=== PATIENT | male | born 1950 | race Caucasian/White ===

== ENCOUNTER 2019-03-02 11:11 | Inpatient (IN) | payer MEDICARE, OTHER ==
[~2019-03-02] VITALS: Ht 185.4 cm; Wt 110.0 kg
[2019-03-02] VITALS (8 sets, daily range): BP systolic 101–122; BP diastolic 48–75; PULSE 57–81; TEMP 97.9
[~2019-03-02 11:11] MED LIST: ADVIL200 MG PO; FLEXERIL 1010 MG/TAB PO; IMODIUM 2MG CAPS2 MG PO; LIDODERM 5% PATC1 EA TP; MOBIC15 MG PO; PROTONIX 40MG T40 MG PO; STOMACH RELIEF262 MG PO; ULTRAM 50MG TAB50 MG PO; VIVLODEX5 MG; [UNRECOGNIZED DRUG - OTHER] PO
[2019-03-02] MEDS ORDERED: MOBIC15 MG PO (11:30)
[2019-03-02 12:35] LABS: BASO % 0.3 % (0.0-2.0); EOS # 0.2 (0.0-0.7); EOS % 2.1 % (0-4.0); GRAN # 6.3 (1.4-6.5); GRAN % 82.7 % (42.2-75.2); HEMATOCRIT 41.5 % (42.0-52.0); LYMPH # 0.7 (1.2-3.4); LYMPH % 9.2 % (20.0-51.0); MEAN CELL VOLUME 92 fl (80.0-100.0); MEAN CORPUSCULAR HEMOGLOBIN 31 pg (27.0-31.0); MEAN CORPUSCULAR HGB CONC 34 g/dl (33.0-37.0); MEAN PLATELET VOLUME 9.1 fl (7.4-10.4); MONO # 0.4 (0.1-0.6); MONO % 4.9 % (1.7-9.3); PLATELET COUNT 179 K/mm3 (130-400); REDCELL DISTRIBUTION WIDTH-CV 12.9 % (11.5-14.5)
[2019-03-02 12:43] LABS: ALBUMIN 4.4 gm/dL (3.5-5.0); BILIRUBIN,TOTAL 0.6 mg/dL (0.0-1.0); CALCIUM 8.5 mg/dL (8.4-10.2); CREATININE, serum 0.97 (0.66-1.25); POTASSIUM 4.5 mmol/L (3.4-5.0); TOTAL PROTEIN 7.9 gm/dL (6.4-8.2)
[2019-03-02] MEDS ORDERED: TYLENOL 500MG500 MG PO (14:06)
[2019-03-02 14:56] LABS: INR 1.1 (0.8-3.0); PROTHROMBIN TIME 13.2 SECONDS (9.7-12.8)
[2019-03-02 15:13] LABS: COLLECTION METHOD CATHETER
[2019-03-02 15:20] LABS: MUCOUS Present /lpf; PH 7 (5-8); SQUAMOUS EPITHELIAL None Seen /hpf; URINE APPEARANCE Clear; URINE BACTERIA None Seen /hpf; URINE BILIRUBIN Negative (NEGATIVE); URINE BLOOD Negative (NEGATIVE); URINE COLOR Yellow; URINE GLUCOSE Negative (NEGATIVE); URINE KETONE Negative (NEGATIVE); URINE LEUKOCYTE ESTERASE Negative (NEGATIVE); URINE NITRATE Negative (NEGATIVE); URINE PROTEIN(semi-quant) Negative (NEGATIVE); URINE RBC 0-2 /hpf; URINE UROBILINOGEN Negative (NEGATIVE)
--- NOTE | 2019-03-02 17:15 | NUR ---
Patient to the OR with [facility] nurse. Patient was seen by hospitalist & cleared for surgery. Lozano inserted & UA sent lab. Ekg completed. Inital, 5 page, & med rec completed. Prior to Or patient was in significant pain-morphine did not relieve pain, hospitalist made aware & dilaudid given & patient was able to get relief from the pain. He refused Teds & scds until his hip is fixed. Ivf to gravity. He has been Npo, denied nausea. sip of water with pepcid. Will await his return from Or
--- NOTE | 2019-03-03 01:13 | NUR ---
PATIENT DOING WELL TONIGHT. UP FROM SURGERY. ALERT AND ORIENTED. DENIES PAIN. FEELING RETURNED TO LEGS AND IS ABLE TO MOVE FEET AND FEET LIGHT TOUCH. STATES PAIN FEELS LIKE "BEE STING" AND DENIES NEED FOR PAIN MEDICATION. ATE A FEW SNACKS. BP HAS BEEN LOW, WILL CONTINUE TO MONITOR. BULKY DRESSING TO R HIP. PILLOW BETWEEN LEGS. TEDS, AND SCDS ON. ICE APPLIED TO R HIP INCISION SITE. RAMIREZ DRAINING CLEAR YELLOW URINE. 2 L O2 VIA NC. PATIENT UP WATCHING TV. CALL LIGHT WITHIN REACH. WILL CONTINUE TO MONITOR. NO FURTHER NEEDS AT THIS TIME.
[2019-03-03 03:11] VITALS: BP 101/65; PULSE 66; TEMP 98.7
[2019-03-03 07:47] VITALS: BP 117/63; PULSE 75; TEMP 98.3
--- NOTE | 2019-03-03 10:26 | NUR ---
PT UP TO RECLINER WITH THERAPY. PAIN CONTROLLED WITH PO MEDS.
[2019-03-03 10:38] LABS: HEMOGLOBIN 12.1 g/dl (13.5-18.0)
[2019-03-03 10:44] LABS: HEMATOCRIT 35.8 % (42.0-52.0)
--- NOTE | 2019-03-03 10:51 | NUR ---
ALIYA met with the patient to discuss a discharge plan. The patient lives in [place] with his , Katheryn. The patient has a cane and reports independence with ADLs. The patient's PCP is Dr. Bullock and patient receives medications from [facility]. The patient does not have advanced directives in the EMR. The patient is needing a walker. ALIYA presented the DME choice form. The patient chose [facility] and form placed in the chart. ALIYA faxed the order to [facility]. Physical therapy is recommending outpatient physical therapy. The patient has had PT at [facility] in the past and would like to return there for PT. ALIYA contacted [facility] and they requested orders, facesheet, PT note be faxed at discharge. services tech will continue to follow to ensure a safe discharge.
--- NOTE | 2019-03-03 11:16 | NUR ---
phillips catheter discontinued per orders. pt tolerated well. Educated pateint on calling when he wants to get up.
--- NOTE | 2019-03-03 11:41 | NUR ---
pt up to br voided and returned to recliner.
[2019-03-03 12:18] VITALS: BP 119/55; PULSE 72; TEMP 98.3
--- NOTE | 2019-03-03 15:32 | NUR ---
Hira from [facility] delivered the patient's walker this day. director water and waste services will continue to follow.
[2019-03-03 15:50] VITALS: BP 106/60; PULSE 67; TEMP 98.2
[2019-03-03 21:41] VITALS: BP 118/61; PULSE 69; TEMP 98.7
[2019-03-04] VITALS (7 sets, daily range): BP systolic 98–111; BP diastolic 50–62; PULSE 62–80; TEMP 97.3–98.7
--- NOTE | 2019-03-04 00:34 | NUR ---
PATIENT DOING WELL TONIGHT. BULKY DRESSING TO R HIP CDI. INT TO R FA. AMBULATED TO BATHROOM WITH STANDBY ASSIST AND USE OF WALKER. PRN NORCO GIVEN BEFORE BED FOR MODERATE PAIN. NO FURTHER NEEDS AT THIS TIME. WILL CONTINUE TO MONITOR.
--- NOTE | 2019-03-04 07:02 | NUR ---
Report from Verito MELGOZA.
[2019-03-04 08:07] LABS: BASO % 0.2 % (0.0-2.0); EOS # 0.1 (0.0-0.7); EOS % 0.9 % (0-4.0); GRAN # 4.1 (1.4-6.5); GRAN % 70.7 % (42.2-75.2); HEMOGLOBIN 11.3 g/dl (13.5-18.0); LYMPH # 1.2 (1.2-3.4); LYMPH % 20.5 % (20.0-51.0); MEAN CELL VOLUME 94 fl (80.0-100.0); MEAN CORPUSCULAR HEMOGLOBIN 32 pg (27.0-31.0); MEAN CORPUSCULAR HGB CONC 34 g/dl (33.0-37.0); MEAN PLATELET VOLUME 9.4 fl (7.4-10.4); MONO # 0.4 (0.1-0.6); MONO % 7.4 % (1.7-9.3); PLATELET COUNT 154 K/mm3 (130-400); RED BLOOD COUNT 3.58 M/mm3 (4.20-5.60); REDCELL DISTRIBUTION WIDTH-CV 13.2 % (11.5-14.5)
[2019-03-04 08:16] LABS: HEMATOCRIT 33.5 % (42.0-52.0)
--- NOTE | 2019-03-04 13:28 | NUR ---
dressing change complete, incision cdi, aquacel applied oveer incision. Dr. Castorena ok for pt to be independent in and out of room.
--- NOTE | 2019-03-04 22:47 | NUR ---
PATIENT DOING WELL TONIGHT. IS INDEPENDENT IN HIS ROOM. PATIENT TOOK PRN NORCO AND MELATONIN BEFORE BED. STATES HE HAS TROUBLE SLEEPING BECAUSE HE NORMALLY SLEEPS ON HIS SIDE. REQUESTS HELP GETTING HIS SANDALS OFF, STATES HE FELT LIKE HE TWISTED WRONG AND HAD INCREASED PAIN MOMENTARILY. AMBULATION IS STEADY. AQUACELL TO R HIP IS CDI. NO DRAINAGE NOTED. NO FURTHER NEEDS AT THIS TIME. WILL CONTINUE TO MONITOR.
[2019-03-05 03:50] VITALS: BP 108/56; PULSE 75; TEMP 98
[2019-03-05 08:36] LABS: BASO % 0.3 % (0.0-2.0); EOS # 0.2 (0.0-0.7); EOS % 3.6 % (0-4.0); GRAN # 4.7 (1.4-6.5); GRAN % 70.4 % (42.2-75.2); HEMOGLOBIN 12.4 g/dl (13.5-18.0); LYMPH # 1.2 (1.2-3.4); LYMPH % 18.1 % (20.0-51.0); MEAN CELL VOLUME 93 fl (80.0-100.0); MEAN CORPUSCULAR HEMOGLOBIN 31 pg (27.0-31.0); MEAN CORPUSCULAR HGB CONC 34 g/dl (33.0-37.0); MEAN PLATELET VOLUME 9.6 fl (7.4-10.4); MONO # 0.5 (0.1-0.6); MONO % 6.8 % (1.7-9.3); PLATELET COUNT 169 K/mm3 (130-400); RED BLOOD COUNT 3.97 M/mm3 (4.20-5.60); REDCELL DISTRIBUTION WIDTH-CV 13.3 % (11.5-14.5)
[2019-03-05 08:39] LABS: HEMATOCRIT 36.8 % (42.0-52.0)
[2019-03-05 08:44] VITALS: BP 112/62; PULSE 76; TEMP 97
[2019-03-05 08:50] LABS: CALCIUM 8.8 mg/dL (8.4-10.2); CREATININE, serum 0.95 (0.66-1.25)
[2019-03-05] MEDS ORDERED: ASPI325T6 PO (11:29)
[2019-03-05] MEDS ORDERED: NORCO 325 MG-51 TAB PO (11:30)
[2019-03-05] MEDS ORDERED: TYLENOL 325MG325 MG PO (11:30)
[2019-03-05] MEDS ORDERED: VITAMIN C500 MG PO (11:31)
[2019-03-05] MEDS ORDERED: MELATIN 3 MG-11 TAB PO (11:31)
[2019-03-05] MEDS ORDERED: OSCAL 500 TAB500 MG PO (11:31)
--- NOTE | 2019-03-05 11:37 | NUR ---
Patient alert and oriented, answers questions appropriately. See assessment. Right hip incision with dressing CDI. Neuros intact to RLE, pulses palpable. FWB using FWW. No c/o pain or discomfort.
--- NOTE | 2019-03-05 11:54 | NUR ---
The patient is to discharge this day, 03/05 home with outpatient PT/OT at [facility] on [address]. ALIYA faxed order. ALIYA presented the IM form. The patient understood and signed the form. A copy was provided to the patient and original was placed in the chart. There are no additional needs at this time.
--- NOTE | 2019-03-05 13:23 | NUR ---
Discharge instructions reviewed with patient and spouse, verbalized understanding. Discharged via wheelchair to auto/home with spouse at 1230.
== END 2019-03-05 12:30 | disposition home or self-care (01) | DRG 470 ==
LOC: COL.ER 11:11 → SURG 12:07
PROVIDERS: Emergency Medicine; Orthopaedic Surgery; Physician Assistant; ADMIT Student in an Organized Health Care Education/Training Program
PROC: 0SRR0J9 Replacement of Right Hip Joint, Femoral Surface with Synthetic Substitute, Cemented, Open Approach (ICD-10-PCS; principal; 2019-03-02 18:00)
DX: S72.001A Fracture of unspecified part of neck of right femur, initial encounter for closed fracture (principal); G89.29 Other chronic pain; J44.9 Chronic obstructive pulmonary disease, unspecified; H35.60 Retinal hemorrhage, unspecified eye; V86.56XA Driver of dirt bike or motor/cross bike injured in nontraffic accident, initial encounter; Y93.89 Activity, other specified; Y92.89 Other specified places as the place of occurrence of the external cause; Y99.8 Other external cause status; Z87.891 Personal history of nicotine dependence
CPT/HCPCS: 99231-AI; 99239; A9284; C1776; J0690; J1100; J1170; J1885; J2250; J2270; J2405; J2704; J3010; J7030; J7120

== ENCOUNTER 2020-10-12 17:44 | Emergency (ER) | payer MEDICARE, OTHER ==
[~2020-10-12] VITALS: Ht 185.4 cm; Wt 103.6 kg
[~2020-10-12 17:44] MED LIST changes: +ASPI325T6 PO; +MELATIN 3 MG-11 TAB PO; +NORCO 325 MG-51 TAB PO; +OSCAL 500 TAB500 MG PO; +TYLENOL 325MG325 MG PO; +TYLENOL 500MG500 MG PO; +VITAMIN C500 MG PO
[2020-10-12 19:00] VITALS: TEMP 98.1
[2020-10-12 21:33] LABS: MUCOUS Present /lpf; PH 5 (5-8); SQUAMOUS EPITHELIAL 0-2 /hpf; URINE APPEARANCE Clear; URINE BACTERIA None Seen /hpf; URINE BILIRUBIN Negative (NEGATIVE); URINE BLOOD 1+ (NEGATIVE); URINE COLOR Yellow; URINE GLUCOSE Negative (NEGATIVE); URINE KETONE Negative (NEGATIVE); URINE LEUKOCYTE ESTERASE Negative (NEGATIVE); URINE NITRATE Negative (NEGATIVE); URINE PROTEIN(semi-quant) Negative (NEGATIVE); URINE UROBILINOGEN Negative (NEGATIVE); URINE WBC 0-2 /hpf
[2020-10-12 21:41] LABS: COLLECTION METHOD CLEAN CATCH
[2020-10-12] MEDS ORDERED: FLEXERIL 1010 MG/TAB PO (21:46)
[2020-10-12] MEDS ORDERED: LIDODERM 5% PATC1 EA TP (21:46)
[2020-10-12] MEDS ORDERED: MOTRIN 600600 MG/TAB PO (21:46)
[2020-10-12 22:32] VITALS: BP 127/93; PULSE 62
== END 2020-10-12 22:36 | disposition home or self-care (01) ==
LOC: COL.ER 17:44
PROVIDERS: Emergency Medicine
DX: M54.5 Low back pain (principal); Z87.891 Personal history of nicotine dependence; Z79.891 Long term (current) use of opiate analgesic
CPT/HCPCS: J1885; J2270; J3360

== ENCOUNTER 2023-12-03 10:47 | Outpatient (RCR) | payer MEDICARE, OTHER ==
[~2023-12-03 10:47] MED LIST changes: +MOTRIN 600600 MG/TAB PO
== END 2023-12-09 | disposition home or self-care (01) ==
LOC: WSPT
DX: M16.12 Unilateral primary osteoarthritis, left hip (principal); Z96.642 Presence of left artificial hip joint